=== PATIENT | female | born 2000 | race Two or more races ===

== ENCOUNTER 2022-02-25 02:29 | Emergency (ER) | payer OTHER ==
[~2022-02-25] VITALS: Ht 154.9 cm; Wt 81.8 kg
[2022-02-25 02:29] VITALS: BP 126/67
[2022-02-25] MEDS ORDERED: AMOX500T3 PO (03:54)
== END 2022-02-25 03:58 | disposition home or self-care (01) ==
LOC: ER 02:39
DX: J03.90 Acute tonsillitis, unspecified (principal); Z20.822 Contact with and (suspected) exposure to COVID-19
CPT/HCPCS: 36415; 87880